=== PATIENT | female | born 1955 | race American Indian/Alaskan Native ===

== ENCOUNTER 2017-09-20 09:47 | Outpatient (CLI) | payer OTHER ==
--- NOTE | 2017-09-21 10:51 | Mammography Report ---
BILATERAL DIGITAL SCREENING MAMMOGRAM with CAD: 09/20/17 09:47:00 CLINICAL: Routine screening. COMPARISON:09/19/16 and 01/11/16 FINDINGS: The breasts are mostly fatty. A right outer biopsy clip and a left retroareolar biopsy clip. Stable asymmetry at the left clip on the CC view.A right outer focal asymmetry was not identified on the last exam but was present and more prominent on the 2016 exam. No mass, architectural distortion or suspicious calcifications. IMPRESSION: No mammographic evidence of malignancy. A benign right outer lymph node or cyst. BI-RADS CATEGORY: 2 -- Benign RECOMMENDATION: Routine mammographic screening in one year. COMMENT: Patient follow-up letters are generated by our [employer] application.
== END 2017-09-20 09:48 | disposition home or self-care (01) ==
LOC: SPVWC 09:47
PROVIDERS: ATTEND Family Medicine
DX: Z12.31 Encounter for screening mammogram for malignant neoplasm of breast (principal)
CPT/HCPCS: 77067

== ENCOUNTER 2019-02-05 14:40 | Outpatient (CLI) | payer MEDICARE ==
--- NOTE | 2019-02-05 15:39 | Ultrasound Report ---
LEFT BREAST ULTRASOUND HISTORY: Mammographic asymmetry in the central left breast. COMPARISON: 01/24/2019, 01/31/2019 and 02/01/2019 mammograms FINDINGS: Sonographic evaluation focused upon the central location of the left breast and demonstrate s a 3 mm cyst at 12:00 5 cm from the nipple, a 5 x 4 x 3 mm cyst at 1:00 4 cm from the nipple and a 4 x 3 x 2 mm cyst at 11:00 7 cm from the nipple. No solid mass or shadowing. IMPRESSION Benign cysts and no suspicious finding. The 3 mm cyst at 12:00 probably correlates with the mammograp hic density. BIRADS 2: Benign Signer Name: Se Long MD Signed: 02/05/2019 3:34 PM Workstation Name: [id number]
--- NOTE | 2019-02-06 08:21 | Mammography Report ---
STEREOTACTIC-GUIDED LEFT BREAST BIOPSY WITH MARKER PLACEMENT HISTORY: Calcifications. COMPARISON: 01/31/2019 PROCEDURE: The previously described suspicious upper inner calcifications were targeted with stereotactic guidan ce. A timeout was called and the skin was cleansed with Betadine. Using 1% lidocaine for skin anesthe casa and 2% lidocaine with epinephrine for deep anesthesia, 8 gauge mammotome biopsy was performed. Mu ltiple cores were removed and a specimen radiograph confirmed removal of member service representative calcification s. A marker was placed at the biopsy site, the probe was removed and hemostasis was achieved with min imal effort. A sterile dressing with Steri-Strips was applied. The patient tolerated the procedure we ll and there were no apparent complications. A postprocedure mammogram demonstrated concordant clip p lacement and removal of most of the calcifications. She left the department in good condition and was given instructions for wound care and follow-up. IMPRESSION: Successful uncomplicated stereotactic biopsy with marker placement left breast. LEFT DIGITAL DIAGNOSTIC MAMMOGRAM CLINICAL: For clip placement after stereotactic biopsy. COMPARISON: 01/31/2019 mammogram FINDINGS: A new upper inner biopsy clip is identified at the site of stereotactic biopsy. Most of the calcifications have been removed. IMPRESSION: Successful stereotactic biopsy with concordant clip placement. Signer Name: Se Long MD Signed: 02/06/2019 8:17 AM Workstation Name: [id number]
--- NOTE | 2019-02-06 08:49 | Mammography Report ---
LEFT DIGITAL DIAGNOSTIC MAMMOGRAM CLINICAL: For clip placement after stereotactic biopsy. COMPARISON: 01/31/2019 mammogram FINDINGS: A new upper inner biopsy clip is identified at the site of stereotactic biopsy. Most of the calcifications have been removed. IMPRESSION: Successful stereotactic biopsy with concordant clip placement. Signer Name: Se Long MD Signed: 02/06/2019 8:44 AM Workstation Name: [id number]
== END 2019-02-05 14:41 | disposition home or self-care (01) ==
LOC: SPVWC 14:40
PROVIDERS: ATTEND Surgery
DX: N60.12 Diffuse cystic mastopathy of left breast (principal); R92.0 Mammographic microcalcification found on diagnostic imaging of breast
CPT/HCPCS: 19081; 76642; 77065; 88305; A4648

== ENCOUNTER 2020-07-28 10:02 | Outpatient (CLI) | payer MEDICARE ==
--- NOTE | 2020-07-28 11:13 | Mammography Report ---
BILATERAL DIGITAL SCREENING MAMMOGRAM WITH CAD HISTORY: Screening mammogram, history of bilateral breast biopsies. TECHNIQUE: Routine digital mammographic imaging performed. This examination was interpreted with josué coelho benefit of Computer-aided Detection analysis. COMPARISON: 07/04/2019, 02/05/2019, 01/24/2019, 12/27/2017, 09/19/2018. FINDINGS: Breast Density: scattered fibroglandular appearance of the breast tissue. Digital CC and MLO views demonstrate a new round lesion in the left upper outer breast at middle dept h. This may represent a cyst. Biopsy markers in the left superior breast and right upper outer breast are again noted. No suspicious findings within the right breast. IMPRESSION: New 5 mm round lesion in the left upper outer breast for which a targeted ultrasound is recommended f or further evaluation. For localization purposes, the left breast should be scanned focused at the 2: 00 to 3:00 position, 4 cm from the nipple. Additional mammographic views may be indicated after the ultrasound. BIRADS 0-Incomplete: Needs additional imaging evaluation NOTE: WE WILL RECALL THE PATIENT FOR THIS ADDITIONAL EVALUATION. FURTHER INFORMATION: According to the [employer], yearly mammograms are recommend ed starting at age 40 and continuing as long as a woman is in good health. Clinical Breast Exams shou ld be part of a periodic health exam-about every 3 years for women in their 20s and 30s and every yea r for women 40 and over. Breast self exam is an option for women starting in their 20s. Any breast ch ezekiel noted on a breast self exam should be reported promptly to the patient's healthcare provider. Br east MRI is recommended for women with an approximately 20-25% or greater lifetime risk of breast can cer, including women with a strong family history of breast or ovarian cancer and women who have been treated for Hodgkin's disease. A negative Mammography report should not discourage follow up or biopsy of a clinically significant f inding and/or abnormality. Dense breast tissue may obscure small neoplasms. The patient will be entered into a reminder system with a target due date for the next screening mamm ogram. Signer Name: Curtis Golden MD Signed: 07/28/2020 11:08 AM Workstation Name: [id number]
== END 2020-07-28 10:03 | disposition home or self-care (01) ==
LOC: SPVWC 10:02
PROVIDERS: ATTEND Surgery
DX: Z12.31 Encounter for screening mammogram for malignant neoplasm of breast (principal)
CPT/HCPCS: 77067

== ENCOUNTER 2020-08-24 10:17 | Outpatient (CLI) | payer MEDICARE ==
--- NOTE | 2020-08-24 11:02 | Ultrasound Report ---
ULTRASOUND BREAST LEFT LIMITED, 08/24/2020 CLINICAL INFORMATION / INDICATION: INCONCLUSIVE MAMMOGRAM. Left breast nodule on screening mammograph y. TECHNIQUE: Targeted ultrasound evaluation was performed of the area of interest. COMPARISON: Bilateral mammogram 07/28/20. FINDINGS: There is a 6.8 mm ovoid minimally complicated cyst at the 2:00 position 6 cm from the nipple which co rresponds to the mammographic finding. There is also an adjacent 5.4 mm minimally complicated cyst at the 2:00 position 6 cm from the nipple. I see no evidence of a solid mass, posterior shadowing, dist ortion or other abnormality. IMPRESSION: The mammographically detected nodule represents a benign minimally complicated cyst. Follow up recommendation: Routine yearly BI-RADS Category 2: Benign. A normal or "negative" report should not preclude biopsy or follow-up of a clinically suspicious find ing. Signer Name: Ata Wasserman MD Signed: 08/24/2020 10:57 AM Workstation Name: [id number]
== END 2020-08-24 10:18 | disposition home or self-care (01) ==
LOC: SPVWC 10:17
PROVIDERS: ATTEND Surgery
DX: N60.02 Solitary cyst of left breast (principal); N63.20 Unspecified lump in the left breast, unspecified quadrant